=== PATIENT | female | born 1965 | race Caucasian/White ===

== ENCOUNTER 2018-02-27 06:27 | Observation (INO) | payer BC ==
--- NOTE | 2018-02-24 20:51 | HP ---
CC: Yoni Hernandez MD; Dr. Abida Mckay * PREOPERATIVE HISTORY AND PHYSICAL: DATE OF ADMISSION/SURGERY: 02/27/18 This patient is scheduled for an overnight admission by Dr. Wilson on Friday, . ATTENDING SURGEON: Zo Wilson MD * (dictated by Yazmin Mendez NP). CHIEF COMPLAINT: Hyperthyroidism. HISTORY OF PRESENT ILLNESS: The patient is a 52-year-old female recently evaluated by Dr. Wilson for consideration of thyroid surgery. The patient reports that starting in 2015, perhaps coincidentally after a blow to the head, she began to experience symptoms that ultimately led to the diagnosis of hyperthyroidism. She had sudden weight loss, was experiencing shaking and weakness. She had palpitations and was anxious. This was also coincident with experiencing hot flashes from menopause. She was ultimately diagnosed with hyperthyroidism and started on methimazole in May 2016, which has been working in terms of controlling her symptoms. Recently, she had a decrease in her dose that she says is still holding her with regard to symptoms. She is aware that medication will not be able to take care of her symptoms forever, so she is interested in surgery. She is not interested in radioablation therapy. She has never had radiation therapy to the head or neck. Family history is notable for thyroid disease in a cousin. Dr. Wilson examined the patient and noted a slightly enlarged thyroid gland, but no distinct nodules or particular goiter. Dr. Wilson reviewed the findings with her and the patient would ultimately like to proceed with surgery and Dr. Wilson has recommended bilateral subtotal thyroidectomy. She described the nature of the surgical procedure, the relevant risks and benefits, and today I reviewed the expected postoperative care and recovery, and she understands that she will spend an overnight in the hospital. The patient has had a chance to ask questions and stated that she understands the information and is satisfied with the answers given to her questions. She will sign surgical consent on the day of surgery. PAST MEDICAL HISTORY: Osteoporosis and thoracogenic scoliosis. PAST SURGICAL HISTORY: Tonsillectomy in 1971. OB HISTORY: 5, para 2, miscarriage 3. She is postmenopausal since 2012. She is up-to-date with breast exam, mammogram, pelvic and Pap smear in 2017. MEDICATIONS: 1. Methimazole 5 mg p.o. daily and she will take the last dose on 05/10/18. 2. Zyrtec 10 mg 1 tablet p.r.n. 3. Propranolol 20 mg 1 tablet b.i.d. p.r.n. palpitations. 4. Forteo 600 mcg/2.4 mL, 20 mcg subcutaneously injected daily in the evening. 5. Flonase 1 spray in each nostril b.i.d. p.r.n. 6. Multiple vitamin daily in the morning. ALLERGIES: PENICILLIN causes hives and all TRIPLE ANTIBIOTIC OINTMENTS cause rash. FAMILY HISTORY: Cousin with some type of thyroid disease. Father with a history of hypertension. No known anesthesia reactions, bleeding tendencies or clotting disorders in the family. SOCIAL HISTORY: She has never been as smoker; she drinks alcohol socially. Her son will be with her on the day of surgery. 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 REVIEW OF SYSTEMS: Constitutional: No fevers or chills. No current weight loss or excessive fatigue. Endocrine: No diabetes. She is diagnosed with hyperthyroidism as described in history of present illness. Hematologic: No easy bruising or bleeding. She has never received a blood transfusion. Respiratory: No dyspnea on exertion. No chronic cough. Cardiovascular: No anginal chest pain. No current palpitations. Gastrointestinal: No nausea, vomiting, diarrhea, GI bleeding, constipation, or heartburn. Genitourinary: No dysuria. Musculoskeletal: Osteoporosis and scoliosis. No current complaints of back or joint pain. Neurologic: No headache. No blurred vision. No areas of focal weakness or numbness. General: No history of deep vein thrombosis or pulmonary embolism. She has had vomiting with previous general anesthesia. PHYSICAL EXAMINATION GENERAL SURVEY: The patient is a 52-year-old female, well developed, well nourished, in no acute distress. VITAL SIGNS: Height 66.75 inches, weight 130 pounds. Blood pressure 117/68, pulse 68 and regular, respiratory rate 16, temperature 98 tympanic. Body mass index 20.5. HEENT: Benign. NECK: Supple. No cervical lymphadenopathy. Thyroid is slightly enlarged, but there are no distinct nodules and no obvious goiter. No visible swelling. LUNGS: Breath sounds bilaterally clear and equal. HEART: Regular rate and rhythm. No murmurs or rubs appreciated. BACK: No CVA tenderness. ABDOMEN: Active bowel sounds. Soft, nondistended, nontender throughout. No obvious masses, organomegaly, or evidence of ventral hernia. PELVIC: Exam deferred. RECTAL: Exam deferred. EXTREMITIES: Warm without edema or skin ulceration. NEUROLOGIC: Alert and oriented x3. Steady gait. SKIN: Warm, dry, intact. IMPRESSION: Hyperthyroidism, thyrotoxicosis with diffuse goiter without thyrotoxic crisis or storm. PLAN: Overnight admission to Dr. Wilson's service for bilateral subtotal thyroidectomy on 02/27/18. AUSTIN MENDEZ, CLINICAL SALES CONSULTANT [id number]/[facility] #: [id number] JONE
[~2018-02-27 06:27] MED LIST: Buffered Lidocaine 0.9% SYRIN* 5 ML/SYR SYRINGE INTRADERM ONE; Famotidine IV* 10 MG/ML 2 ML (20 mg) IV ONE
[2018-02-27] MEDS ORDERED: Famotidine TAB* 20 MG ONE (07:00)
[2018-02-27] MEDS ORDERED: Clindamycin 900 MG IVPREMIX(* 900 MG/50 ML SDV IV ONE (07:00)
[2018-02-27] MEDS ORDERED: Bupivacaine 0.25% SDV* 30 ML ONE (07:11)
[2018-02-27] MEDS ORDERED: fentaNYL* 50 MCG/ML 2 ML VIAL (100 MCG VIAL) ONE ×2 (07:30→09:50)
[2018-02-27] MEDS ORDERED: Midazolam* 1 MG/ML 5 ML VIAL (5 MG) ONE (07:30)
[2018-02-27] MEDS ORDERED: DiMENhydriNATE IV* 50 MG/ML VIAL IV PUSH PRN (07:36)
[2018-02-27] MEDS ORDERED: HYDROmorphone INJ* 1 MG/ML CARPUJECT SYRINGE IV PRN (07:36)
[2018-02-27] MEDS ORDERED: Naloxone* 0.4 MG/ML 1 ML VIAL IV PRN (07:36)
[2018-02-27] MEDS ORDERED: Acetaminophen IV 1GM/100ML * 1,000 MG/100 ML VIAL IVPB ONE (07:36)
[2018-02-27] MEDS ORDERED: DiMENhydriNATE IV* 50 MG/ML VIAL ONE (08:25)
[2018-02-27] MEDS ORDERED: Dexamethasone IV* 4 MG/ML 1 ML (4 MG) ONE (08:25)
[2018-02-27] MEDS ORDERED: Succinylcholine* 20 MG/ML 10 ML VIAL ONE (08:25)
[2018-02-27] MEDS ORDERED: Ketorolac INJ* 30 MG/ML 1 ML VIAL ONE (08:25)
[2018-02-27] MEDS ORDERED: Lidocaine 2% PF * 5 ML VIAL ONE (08:25)
[2018-02-27] MEDS ORDERED: Propofol* 10 MG/ML 20 ML BTL IV PUSH ONE (08:25)
[2018-02-27] MEDS ORDERED: Acetaminophen TAB* 325 MG PO PRN (10:15)
[2018-02-27] MEDS ORDERED: Ondansetron INJ* 2 MG/ML VIAL IV PRN (10:15)
[2018-02-27] MEDS ORDERED: HYDROmorphone INJ* 2 MG/ML CARPUJECT SYRINGE IV PRN (10:15)
[2018-02-27] MEDS ORDERED: Acetaminophen IV 1GM/100ML * 100 ML ONE (10:19)
[2018-02-27] MEDS: oxyCODONE/Acetamin 5/325 MG* TAB PO PRN ×2 (13:37→17:55)
[2018-02-27] MEDS: Ibuprofen TAB* 600 MG PO PRN (23:27)
--- NOTE | 2018-02-28 04:27 | OP ---
CC: [facility]; Dr. Abida Mckay. OPERATIVE REPORT: DATE OF OPERATION: 02/27/18 DATE OF : 65 SURGEON: Zo Wilson MD PHOTOGRAPHER NEWS: Yazmin Garcia NP PRE-OP DIAGNOSIS: Hyperthyroidism. POST-OP DIAGNOSIS: Hyperthyroidism. OPERATIVE PROCEDURE: Subtotal bilateral thyroidectomy. INDICATIONS: Ms. Gaytan is a 52-year-old woman with symptomatic hyperthyroidism resulting in a plan for surgical intervention. DESCRIPTION OF PROCEDURE: She was prepared for surgery and brought to the operating room. She was placed on the OR table in a supine position and given general anesthesia. The neck was prepped and draped in the usual sterile fashion. After infiltrating with local anesthetic, an incision was made along the line that had been marked preoperatively. Subcutaneous tissue was then divided with electrocautery through the platysma muscle. Flaps were developed superiorly to the thyroid notch and inferiorly to the sternal notch. The strap muscles were identified and divided along the midline. They were then retracted first over the right side of the gland with attachments of the thyroid to the underside of the muscle were divided sharply and then thyroid gland was dissected from the trachea starting at the medial aspect of the superior pole. Individual vessels that approach the gland were divided between ligature and clip until the superior pole was completely taken down. Attention was then turned to the inferior pole and in this region, the vessels were divided primarily with the Ligasure device. Once the inferior pole was also taken up, attention was turned to the middle portion of the gland here. Pretty obvious superior pole parathyroid was identified and preserved during the surgery and then the recurrent laryngeal nerve was identified and preserved during the surgery. Identifying these structures was accomplished with blunt dissection. Vessels that were encountered were controlled with either ligature or clips. Definitive lower pole parathyroid was not identified on this side. The gland was divided from the trachea using electrocautery leaving a small portion of the medial most aspect of the gland. Once the right lobe and isthmus were off the trachea, attention was turned to the left side. Here the strap muscles were retracted laterally over the left lobe of the thyroid and dissection was begun in the medial aspect of the superior pole. Individual vessels that approach the gland were divided between ligature and clips. Attention was turned to the lower pole where ligature was used to divide the vessels. It should be mentioned that on both sides, there were numerous small vessels resulting in some difficulty controlling the vessels. Once upper and lower poles were divided from the trachea, attention was turned to the middle portion of the gland. Superior pole parathyroid was identified and noted to be viable. The inferior pole parathyroid was identified and noted to be below the plane of dissection. The recurrent laryngeal nerve was also identified and was intact. A small portion of the gland was left in place. The rest of the gland was divided from it with electrocautery and elevated off the trachea using electrocautery. The specimen was handed off labelled bilateral subtotal thyroid and then search was made for bleeding on both sides. The bleeding appeared to be well controlled. A small amount of Surgicel was placed on each side and then closure was accomplished. This was done with 3-0 Vicryl to reapproximate the strap muscles, 4-0 Vicryl to reapproximate the platysma muscles and the skin was closed with 4-0 Prolene in a subcuticular fashion. Steri-Strips and a dry fluffy dressing were applied. All sponge and instrument counts were correct. The patient tolerated the procedure well and was transferred to recovery in a stable condition. [id number]/[facility] #: [id number] JONE
[2018-02-28] MEDS: Ibuprofen TAB* 600 MG PO PRN (07:59)
--- NOTE | 2018-02-28 08:38 | PN ---
Progress Note - Progress Note Date of Service: 02/28/18 Note: Surgery Ms. Gaytan reports she did not get much sleep last night. She denies numbness around the lips. She is having some pain at the incision. Vital Signs 02/27/18 02/27/18 02/27/18 10:28 10:30 10:31 Temperature 97.7 F Pulse Rate 86 92 Respiratory 16 16 22 Rate Blood Pressure 143/94 145/100 (mmHg) O2 Sat by Pulse 99 99 Oximetry 02/27/18 02/27/18 02/27/18 10:35 10:43 10:45 Temperature Pulse Rate 83 77 79 Respiratory 16 26 22 Rate Blood Pressure 139/89 118/90 121/86 (mmHg) O2 Sat by Pulse 99 98 98 Oximetry 02/27/18 02/27/18 02/27/18 10:51 10:55 11:00 Temperature Pulse Rate 81 73 75 Respiratory 19 15 21 Rate Blood Pressure 124/76 122/84 124/88 (mmHg) O2 Sat by Pulse 98 97 98 Oximetry 02/27/18 02/27/18 02/27/18 11:06 11:10 11:15 Temperature 97.7 F Pulse Rate 80 83 78 Respiratory 22 18 17 Rate Blood Pressure 132/77 125/77 125/86 (mmHg) O2 Sat by Pulse 97 98 98 Oximetry 02/27/18 02/27/18 02/27/18 11:30 11:44 11:45 Temperature 97.8 F 97.8 F Pulse Rate 75 86 86 Respiratory 18 18 Rate Blood Pressure 131/81 131/81 (mmHg) O2 Sat by Pulse 97 99 99 Oximetry 02/27/18 02/27/18 02/27/18 12:04 12:39 13:37 Temperature 98.9 F Pulse Rate 81 Respiratory 18 16 16 Rate Blood Pressure 106/64 (mmHg) O2 Sat by Pulse 100 Oximetry 02/27/18 02/27/18 02/27/18 13:39 16:00 16:05 Temperature 98.9 F 98.5 F Pulse Rate 99 97 Respiratory 16 18 Rate Blood Pressure 104/62 107/64 (mmHg) O2 Sat by Pulse 96 96 97 Oximetry 02/27/18 02/27/18 02/27/18 16:23 17:43 17:55 Temperature 98.3 F Pulse Rate 97 Respiratory 18 18 18 Rate Blood Pressure 116/74 (mmHg) O2 Sat by Pulse 98 Oximetry 02/27/18 02/27/18 02/27/18 19:06 20:05 20:13 Temperature 98.2 F Pulse Rate 92 Respiratory 16 16 16 Rate Blood Pressure 127/68 (mmHg) O2 Sat by Pulse 100 Oximetry 02/27/18 02/27/18 02/28/18 22:53 23:25 03:19 Temperature 98.1 F 98.5 F Pulse Rate 86 87 Respiratory 16 16 Rate Blood Pressure 92/56 110/65 99/54 (mmHg) O2 Sat by Pulse 97 97 Oximetry 02/28/18 08:19 Temperature Pulse Rate Respiratory Rate Blood Pressure (mmHg) O2 Sat by Pulse 97 Oximetry Exam: voice is strong; neg. Chvostek's sign. Incision is clean with on drop of serous drainage. Laboratory Results - last 24 hr 02/27/18 02/27/18 02/27/18 10:43 16:34 22:40 Calcium 8.9 8.9 9.0 02/28/18 04:53 Calcium 8.6 A/P: POD#1 s/p bilateral subtotal thyroidectomy. Pt. has thyroid replacement med at home. F/U on 03/10. CLFoster
[2018-02-28 09:06] VITALS: BP 102/67
--- NOTE | 2018-03-11 02:20 | DS ---
DISCHARGE SUMMARY: DATE OF ADMISSION: 02/27/18 DATE OF DISCHARGE: 02/28/18 ADMISSION DIAGNOSIS: Thyrotoxicosis with diffuse goiter without thyroiditis. DISCHARGE DIAGNOSIS: Thyrotoxicosis with diffuse goiter without thyroiditis. PROCEDURES DURING HOSPITALIZATION: Included subtotal bilateral thyroidectomy. HOSPITAL COURSE: Mr. Gaytan is a 52-year-old female with thyrotoxicosis. Please see the admission history and physical for details of findings at the time of admission. On the date of admission, she underwent surgery to remove the majority of her thyroid gland and stayed overnight from postoperative calcium monitoring. Her calcium remained stable during the night and the next morning she felt well and was stable for discharge. She was discharged to home with instructions to follow up as an outpatient. [id number]/[facility] #: [id number] MTDFlakito
== END 2018-02-28 09:50 | disposition home or self-care (01) ==
LOC: AA 06:27 → INTOOBSV 06:27 → SSU 11:48
PROVIDERS: ADMIT Surgery; ATTEND Surgery
PROC: 0GBH0ZZ Excision of Right Thyroid Gland Lobe, Open Approach (ICD-10-PCS; 2018-02-27)
PROC: 0GBJ0ZZ Excision of Thyroid Gland Isthmus, Open Approach (ICD-10-PCS; 2018-02-27)
PROC: 0GBG0ZZ Excision of Left Thyroid Gland Lobe, Open Approach (ICD-10-PCS; principal; 2018-02-27 07:30)
DX: E05.90 Thyrotoxicosis, unspecified without thyrotoxic crisis or storm (principal); R53.1 Weakness; R00.2 Palpitations; F41.9 Anxiety disorder, unspecified
CPT/HCPCS: 36415; 82310; 88307; A9270-GY; G0378; J0330; J1100; J1240; J1885; J2250; J2704; J3010

== ENCOUNTER 2024-11-12 10:15 | Observation (INO) ==
[~2024-11-12 10:15] MED LIST changes: -Buffered Lidocaine 0.9% SYRIN* 5 ML/SYR SYRINGE INTRADERM ONE; -Famotidine IV* 10 MG/ML 2 ML (20 mg) IV ONE; +Metoclopramide 5 MG/ML VIAL (10 mg) IV PRN; +Naloxone 0.4 mg VIAL 0.4 mg/ml 1 ml VIAL IV PRN; +Ondansetron 4 mg VIAL 2 MG/ML 2 ml VIAL IV PRN
[2024-11-12] MEDS ORDERED: Tranexamic Acid 1 GM/100ML BAG 2,000 MG/200 ML BAG IV ONE (10:27)
[2024-11-12] MEDS ORDERED: ceFAZolin 2 GM PREMIX 2 GM/50 ML BAG ONE (10:28)
[2024-11-12] MEDS ORDERED: Lidocaine 2% PF 5 ML VIAL ONE (10:40)
[2024-11-12] MEDS ORDERED: Propofol 10 MG/ML 20 ML BTL ONE (10:40)
[2024-11-12] MEDS ORDERED: Dexamethasone IV 4 MG/ML VIAL 1 ml VIAL ONE ×2 (10:40→11:41)
[2024-11-12] MEDS ORDERED: fentaNYL 100 mcg/2 ml 50 MCG/ML VIAL ONE ×2 (10:40→15:59)
[2024-11-12] MEDS ORDERED: Midazolam 2 mg/2 ml VIAL 1 mg/ml 2 ml VIAL (2 mg) ONE (10:40)
[2024-11-12] MEDS ORDERED: Ondansetron 4 mg VIAL 2 MG/ML 2 ml VIAL ONE ×2 (10:40→15:06)
[2024-11-12 10:59] LABS: Rapid COVID-19 Molecular Undetected (Undetected)
[2024-11-12] MEDS ORDERED: ROPIVACAINE 5 MG/ML 30 ML BTL (0.5%) ONE ×2 (11:41→12:32)
[2024-11-12] MEDS ORDERED: KETAMINE HCL 10 MG/ML 20 ml VIAL (200 MG) ONE (14:08)
[2024-11-12] MEDS ORDERED: Ondansetron 4 mg VIAL 2 MG/ML 2 ml VIAL IV PRN (15:43)
[2024-11-12] MEDS ORDERED: Magnesium Hydroxide LIQ 30 ML UDC PO PRN (15:43)
[2024-11-12] MEDS ORDERED: Calcium Carb (TUMS) 500 mg CHEW TAB PO PRN (15:43)
[2024-11-12] MEDS ORDERED: Ondansetron ODT 4 mg TAB 4 MG TAB PO PRN (15:43)
[2024-11-12] MEDS ORDERED: Lactulose 30 ml UDC PO PRN (15:43)
[2024-11-12] MEDS ORDERED: Morphine 2 MG/ML SYRINGE IV PRN (15:43)
[2024-11-12] MEDS: fentaNYL 100 mcg/2 ml 50 MCG/ML VIAL IV PRN (16:02)
[2024-11-12] MEDS: Lactated Ringers 1000 ml BAG 1,000 ML IV SCH ×2 (18:00→19:58)
[2024-11-12] MEDS: Buffered Lidocaine 1% SYRIN 1 ml INTRADERM ONE (19:57)
[2024-11-12] MEDS: Acetaminophen IV 1 GM/100ML 1,000 MG/100 ML BAG IV ONE (19:57)
[2024-11-12] MEDS: Scopolamine 1 mg/72hr PATCH TRANSDERM ONE (19:57)
[2024-11-12] MEDS: ceFAZolin 2 GM PREMIX 2 GM/50 ML BAG IV SCH (22:28)
[2024-11-12] MEDS: Magnesium Hydroxide LIQ 30 ML UDC PO SCH (22:29)
[2024-11-13 05:54] LABS: Hematocrit 36.7 % (35-45); Hemoglobin 12.6 g/dL (11.5-14.3); Mean Platelet Volume 7.7 fL (7.5-11.2); Platelet Count 229 10^3/uL (150-450)
[2024-11-13 06:17] LABS: Calcium 8.8 mg/dL (8.6-10.3); Creatinine, Serum 0.79 mg/dL (0.51-0.95); Potassium 4.5 mmol/L (3.5-5.0); eGFR CKD-EPI 86.1 (>60)
[2024-11-13] MEDS: Vitamin THERAPEUTIC TAB PO SCH (08:26)
[2024-11-13 09:55] VITALS: BP 108/69
== END 2024-11-13 14:00 | disposition home or self-care (01) ==
LOC: SSU 10:15 → OR 10:15
PROVIDERS: ADMIT Orthopaedic Surgery Adult Reconstructive Orthopaedic Surgery; ATTEND Orthopaedic Surgery Adult Reconstructive Orthopaedic Surgery